=== PATIENT | male | born 1950 | race Two or more races ===

== ENCOUNTER 2023-09-22 13:23 | Outpatient (OUT) | payer MEDICARE, OTHER, SELFPAY ==
--- NOTE | 2023-09-22 13:27 | MR_ITS ---
[place] [id number] Patient Name: RASHMI BRANDT MRN: [id number]:[id number] date: 1950 Sex: M Assigned Patient Location: MRI Current Patient Location: Accession/Order Number: [id number] Exam Date: 09/22/2023 13:40 Report Date: 09/23/2023 01:04 At the request of: KIMBERLEE SOARES Procedure: MR lumbar spine wo con INDICATION: 72 years old; Male . Symptom/Location/Duration: Right Lumbar Pain TECHNIQUE: Multiplanar MR imaging of the lumbar spine was performed. IV contrast: None. Comparison: Images from a CT abdomen dated 10/03/2020. FINDINGS: POSTOPERATIVE CHANGES: None. ALIGNMENT: Loss of normal lumbar lordosis. Scoliosis concave to the left with a rotational component. COMPRESSION FRACTURES: No fracture or vertebral body collapse is seen. No bone destruction is seen. No bone marrow edema is present. PREVERTEBRAL SOFT TISSUES: Normal. SPINAL CORD: Line for scoliosis, there is cord impingement present at the level of T10-T11. Subtle hyperintensity is seen within the cord as noted on images 1011/series 7001. Consider dedicated thoracic examination. Disc levels: T12-L1: Disc degeneration. Disc space narrowing. Disc bulging and endplate osteophyte formation with facet degeneration. There is a central disc osteophyte complex. Mild central canal stenosis is seen. There is flattening of the anterior aspect of the thecal sac. Neural foramina are patent. There is effacement of CSF space anterior to the distal conus. L1-L2: Disc degeneration. Disc space narrowing, disc bulging, endplate osteophyte formation, vertebral endplate degeneration, endplate osteophyte formation, with rotational deformity associated with scoliosis. Small synovial cyst on the right. Mild central canal stenosis. Mild left and severe right-sided foraminal stenosis. L2-L3: Disc degeneration. Disc space narrowing. Disc bulging and endplate osteophyte formation with vertebral endplate degeneration. Facet degeneration. Rotational deformity associated with scoliosis. There is moderate left and severe right-sided foraminal stenosis. L3-L4: Disc degeneration. Disc space narrowing with vertebral endplate degeneration, endplate osteophyte formation, and facet degeneration with bony overgrowth. There is severe central canal stenosis with severe circumferential compression of the thecal sac associated with effacement of CSF space surrounding the nerve roots and compression of the nerve roots within the sac. Severe bilateral foraminal stenosis is present. L4-L5: Disc space narrowing, disc bulging, endplate osteophyte formation, vertebral endplate degeneration, and facet degeneration is seen. There is severe left and moderate to severe right-sided foraminal stenosis. L5-S1: Disc degeneration. Disc space narrowing. Disc bulging and endplate osteophyte formation with facet degeneration. A superimposed right, lateral, intraforaminal extrusion type disc herniation is seen compressing the exiting left L5 nerve root. LOWER THORACIC SPINE: Disc degeneration with disc space narrowing, disc bulging, endplate osteophyte formation, annular fissure formation, and facet degeneration at T10-T11 with central canal stenosis associated with cord deformity as described above. Disc degeneration is seen with anterior osteophytes at T11-T12. OTHER: Posterior paraspinal muscle atrophy. Psoas muscle intact. MR/MR lumbar spine wo con IMPRESSION: 1. Diffuse degenerative changes throughout the lower thoracic and lumbar spine as described in the body of this report. There is multilevel central canal and foraminal stenosis. Please see the detailed discussion of the individual levels in the body of this report. 2. Degenerative change at T10-T11 with central canal stenosis associated with cord deformity and subtle abnormal signal within the cord. Recommend dedicated thoracic study. Electronically authenticated by: NIDHI ALAN Date: 09/23/2023 01:04
== END 2023-09-22 13:24 | disposition home or self-care (01) ==
LOC: MRI 13:23
PROVIDERS: PCP Internal Medicine; Visit Provider Internal Medicine
DX: M54.16 Radiculopathy, lumbar region (principal); M51.36 Other intervertebral disc degeneration, lumbar region
CPT/HCPCS: 72148

== ENCOUNTER 2023-10-14 12:20 | Outpatient (OUT) | payer MEDICARE, OTHER, SELFPAY ==
--- NOTE | 2023-10-14 | CONS_ITS ---
CONSULTATION DATE: 10/14/2023 TO: Dr. Ingram CHIEF COMPLAINT: Includes severe lower back pain, right leg pain, right foot pain. HISTORY OF PRESENT ILLNESS: Review of systems, past medical/surgical history were obtained and documented on the health questionnaire and is available upon request. He is a 72-year-old male who reports having had pain since July of 2023. It occurred spontaneously and increased gradually to its present state. He now complains of 1-7/10 pain in his right foot area, described as deep aching/throbbing pain, increased with activities such as standing, walking and performing transitioning maneuvers. He feels most comfortable in the semi- recumbent position. Denies any change in bowel and bladder habits or new sensorimotor changes in the lower extremities. EXAMINATION: Notable for patient having hypoesthesia along the right L4 and L5 dermatome with decreased EHL and anterior tibialis, depressed right Achilles reflex and patellar reflex. Straight leg raise is equivocally positive at approximately 90 degrees. He had no signs consistent with myelopathy involving his lower extremities. His REBECCA was 18% on today?s visit. IMPRESSION: Our impression is patient appears to have chronic pain secondary to right L4-L5 radiculopathy. RECOMMENDATIONS: I have recommended he consider trialing Zonegran 50 mg, one at h.s.; baclofen 10 mg, 1-2 at h.s. He has been using nonsteroidal agents since at least July of 2023 in for the form of Aleve with only marginal relief. He has also been in a supervised exercise program. Our recommendation is that patient consider starting aquatic therapy. I have placed him on Zonegran 50 mg at h.s. to be increased to 100 mg at h.s. after approximately seven days. I have placed him on baclofen 10 mg, half a pill to one pill at h.s. as well and to proceed with an L5-S1 lumbar epidural steroid injection under fluoroscopic guidance. As part of providing excellent, safe, comprehensive care, the following was completed at our patient's visit: 1. A medication reconciliation and review to ensure accurate knowledge of current/active medications, including asking our patients to inform us about any [id number] medications or herbal remedies/nutritional supplements/alternative remedies. 2. A review to specifically ensure our patients have had annual screening for: elevated body mass index (BMI, see intake chart for exact total), tobacco use, screening for depression, and screening for unhealthy alcohol use. When screening is concerning, patients are provided with education and the specific recommendation to discuss the concerning health issue and treatment options with their primary care provider. KAVITA
--- OUTSIDE RECORDS SUMMARY | 2023-10-14 12:23 | XMS_ITS | CCD ---
Author Name Unknown Address [address] [facility] [address] [place] [id number] Organization [facility] Care Team Providers Care Fire Sprinkler Installer Name Role Phone NIDHI RICKS Admitting Unavailable NIDHI RICKS Attending Unavailable KAUSHAL SOARES Primary Care Unavailable JONES HIGGINS V Consulting Unavailable NIDHI RICKS Consulting Unavailable MAXIMUS VAIL Referring Unavailable Kaushal Soares DO Primary Care Provider MAXIMUS VAIL Admitting Unavailable MAXIMUS VAIL Attending Unavailable KAUSHAL SOARES Primary Care Unavailable KAELYN COLEMAN Referring Unavailable KAELYN COLEMAN Attending Unavailable Medications Current Medications Medication Drug Class(es) Dates Sig (Normalized) Sig (Original) amLODIPine 10 mg oral tablet (1 source) Dihydropyridine Calcium Channel Savita Start: 08-05-2022 take 1 tablet by mouth once daily amLODIPine (NORVASC) 10 MG tablet Take 10 mg by mouth daily 0 08/05/2022 Active amoxicillin 500 mg oral tablet (1 source) Penicillin-class Antibacterial Start: 07-30-2022 take 4 tablets by mouth once Amoxicillin 500 MG TABS Take 500 mg by mouth 1 (one) time if needed Take 4 tablets by mouth once hour before procedure 0 07/30/2022 Active aspirin 81 mg delayed release oral tablet (1 source) Platelet Aggregation Inhibitor, Nonsteroidal Anti-inflammatory Drug Start: 09-26-2021 take 1 tablet by mouth once daily aspirin 81 MG EC tablet Take 81 mg by mouth daily 0 09/26/2021 Active calcium chloride 0.0014 meq/ml / potassium chloride 0.004 meq/ml / sodium chloride 0.103 meq/ml / sodium lactate 0.028 meq/ml injectable solution (1 source) Start: 08-12-2022 lactated ringers infusion cholecalciferol 0.025 mg oral tablet (1 source) Vitamin D take 1 tablet by mouth once daily vitamin D (CHOLECALCIFEROL) 25 MCG (1000 UT) TABS tablet Take 1 tablet by mouth daily 0 Active 2 ml fentaNYL 0.05 mg/ml injection (1 source) Opioid Agonist Start: 08-12-2022 fentaNYL (SUBLIMAZE) injection 25 mcg 0.5 ml HYDROmorphone hydrochloride 1 mg/ml prefilled syringe (1 source) Opioid Agonist Start: 08-12-2022 HYDROmorphone HCl PF (DILAUDID) injection 0.5 mg irbesartan 300 mg oral tablet (1 source) Angiotensin 2 Receptor Savita Start: 08-02-2022 take 1 tablet by mouth once daily irbesartan (AVAPRO) 300 MG tablet Take 300 mg by mouth daily 0 08/02/2022 Active 10 ml lidocaine hydrochloride 10 mg/ml injection (1 source) Antiarrhythmic, Amide Local Anesthetic Start: 08-12-2022 End: 08-13-2022 lidocaine PF 1 % injection 1 mL 2 ml ondansetron 2 mg/ml injection (1 source) Serotonin-3 Receptor Antagonist Start: 08-12-2022 End: 08-13-2022 ondansetron (ZOFRAN) injection 4 mg oxyCODONE hydrochloride 5 mg oral tablet (1 source) Opioid Agonist Start: 08-12-2022 End: 08-13-2022 oxyCODONE (ROXICODONE) immediate release tablet 5 mg microencapsulated potassium chloride 10 meq extended release oral tablet (1 source) Start: 08-02-2022 KLOR-CON M10 10 MEQ extended release tablet Take 10 mEq by mouth daily 0 08/02/2022 Active 5 ml sodium chloride 9 mg/ml injection (5 sources) Start: 08-12-2022 0.9 % sodium chloride infusion Start: 08-12-2022 sodium chlorid e flush 0.9 % injection 5-40 mL Completed/Discontinued Medications Medication Drug Class(es) Dates Sig (Normalized) Sig (Original) gentamicin (GARAMYCIN) 300 mg in dextrose 5 % 100 mL IVPB (1 source) Start: 08-12-2022 End: 08-12-2022 gentamicin (GARAMYCIN) 300 mg in dextrose 5 % 100 mL IVPB Problems Problem Classification Problem Date Documented Da te Episodic/Chronic Abdominal pain (5 sources) Epigastric pain; Translations: [Periumbilical pain] Onset: 10-03-2020 Episodic Other screening for suspected conditions (not mental disorders or infectious disease) (4 sources) Abnormal findings on diagnostic imaging of liver and biliary tract; Translations: [Elevated prostate specific antigen [PSA]] Onset: 10-11-2020 Episodic Results Test Name Value Interpretation Reference Range Mahsa haley Surgical Pathologyon Surgical Pathology (NOTE) -- Diagnosis -- A. PROSTATE, AREA OF INTEREST, NEEDLE CORE BIOPSY: BENIGN PROSTATE. B. PROSTATE, RIGHT BASE LATERAL, NEEDLE CORE BIOPSY: BENIGN PROSTATE. C. PROSTATE, RIGHT BASE MEDIAL, NEEDLE CORE BIOPSY: BENIGN PROSTATE. D. PROSTATE, RIGHT MID LATERAL, NEEDLE CORE BIOPSY: BENIGN PROSTATE. E. PROSTATE, RIGHT MID MEDIAL, NEEDLE CORE BIOPSY: BENIGN PROSTATE. F. PROSTATE, RIGHT APEX LATERAL, NEEDLE CORE BIOPSY: BENIGN PROSTATE. G. PROSTATE, RIGHT APEX MEDIAL, NEEDLE CORE BIOPSY: BENIGN PROSTATE. H. PROSTATE, LEFT BASE LATERAL, NEEDLE CORE BIOPSY: BENIGN PROSTATE. I. PROSTATE, LEFT BASE MEDIAL, NEEDLE CORE BIOPSY: BENIGN PROSTATE. J. PROSTATE, LEFT MID LATERAL, NEEDLE CORE BIOPSY: BENIGN PROSTATE. K. PROSTATE, LEFT MID MEDIAL, NEEDLE CORE BIOPSY: BENIGN PROSTATE. L. PROSTATE, LEFT APEX LATERAL, NEEDLE CORE BIOPSY: BENIGN PROSTATE. M. PROSTATE, LEFT APEX MEDIAL, NEEDLE CORE BIOPSY: BENIGN PROSTATE. Ray Alcala M.D. Electronically Signed Out rdd08/14/2022 Clinical Information Pre-op Diagnosis: ELEVATED PSA Operative Findings: PROSTATE BIOPSIES Operation Performed: FUSION PROSTATE BIOPSY WITH ULTRASOUND Source of Specimen A: AREA OF INTEREST B: RIGHT BASE LATERAL C: RIGHT BASE MEDIAL D: RIGHT MID LATERAL E: RIGHT MID MEDIAL F: RIGHT APEX LATERAL G: RIGHT APEX MEDIAL H: LEFT BASE LATERAL I: LEFT BASE MEDIAL J: LEFT MID LATERAL K: LEFT MID MEDIAL L: LEFT APEX LATERAL M: LEFT APEX MEDIAL Gross Description ARMANDO CHICAS, PROSTATE BIOPSIES All specimens are received on sponges and are gaona-white needle core biopsies less than < 0.1 cm in diameter with the following lengths: A. AREA OF INTEREST Five cores, 0.7, 1.2, 1.4, 1.0 and 0.9 cm in length. Entirely 3cs. B. RIGHT BASE LATERAL One core, 1.6 cm in length. Entirely 1cs. C. RIGHT BASE MEDIAL One core, 1.5 cm in length. Entirely 1cs. D. RIGHT MID LATERAL One core, 1.2 cm in length. Entirely 1cs. E. RIGHT MID MEDIAL One core, 1.5 cm in length. Entirely 1cs. F. RIGHT APEX LATERAL One core, 0.6 cm in length. Entirely 1cs. G. RIGHT APEX MEDIAL One core, 0.7 cm in length. Entirely 1cs. H. LEFT BASE LATERAL One core, 1.3 cm in length. Entirely 1cs. I. LEFT BASE MEDIAL One core, 1.5 cm in length. Entirely 1cs. J. LEFT MID LATERAL One core, 1.3 cm in length. Entirely 1cs. K. LEFT MID MEDIAL One core, 1.5 cm in length. Entirely 1cs. L. LEFT APEX LATERAL One core, 1.5 cm in length. Entirely 1cs. M. LEFT APEX MEDIAL One core, 1.4 cm in length. Entirely 1cs. mm tm Microscopic Description A-M. Microscopic examination performed. E. Right mid medial prostate biopsy. The prostate biopsy shows a focal area with irregularly spaced small glands. To further characterize this focus, triple immunohistochemical staining (*P504S/racemase, CK-HMW, P63 with appropriate control) is performed. P504/racemase is negative. CK-HMW and P63 (nuclear) show positive staining in intact and normal basilar cells in the glands in question. The stain profile is a benign pattern. *This test was developed, and its performance characteristics determined by [facility] Path[facility]. It has not been cleared or approved by the U.S. Food and Drug Administration. The FDA has determined that such clearance or approval is not necessary. This test is used for clinical purposes. It should not be regarded as investigational or for research. This laboratory is certified under the Clinical Laboratory Improvement Amendments of 1988 (CLIA) as qualified to perform high complexity clinical laboratory testing. SURGICAL PATHOLOGY CONSULTATION Patient Name: ARMANDO CHICAS [facility] Rec: [id number] Path Number: [id number] [facility] ANATOMIC PATHOLOG[facility] [address] [place] [id number] Normal [facility] Comment on above: Performed By: #### P PPVS #### [address] [address] Senior Policy Advisor: Humberto Rosa MD MRI PROSTATE W WO CONTRASTon 07-17-2022 MRI PROSTATE W WO CONTRAST EXAMINATION: MULTIPARAMETRIC MRI OF THE PROSTATE WITH AND WITHOUT CONTRAST 07/17/2022: TECHNIQUE: Multiparametric imaging with dynamic contrast enhanced imaging and diffusion weighted imaging was performed. [facility] was utilized in analysis of images. COMPARISON: None. HISTORY: ORDERING SYSTEM PROVIDED HISTORY: Elevated prostate specific antigen (PSA) TECHNOLOGIST PROVIDED HISTORY: STAT Creatinine as needed:->No Reason for Exam: Elevated prostate specific antigen FINDINGS: PROSTATE: cm x cm x cm (estimated volume ml). TRANSITION ZONE: *Index lesion Size: 1.1 cm x 0.6 cm x 0.7 cm Location: Right anterior transition zone, mid gland at 11 o'clock -T2: 4.Lenticular or non circumscribed, homogeneous moderately hypointense lesion that is less than 1.5 cm in greatest dimension. (Series 7, image 19) -Diffusion: 4. Focal markedly hypointense on ADC and markedly hyperintense at high B value DWI, less than 1.5 cm in greatest dimension. (Series 400, image 21) PI-RADS score: T2-weighted score 4, diffusion-weighted score 4, dynamic contrast-enhanced score -, overall score 4 Extraprostatic extension: No evidence for. PERIPHERAL ZONE: Mildly heterogeneous T2 signal without focal lesion identified. No restricted diffusion or abnormal enhancement. SEMINAL VESICLES: Normal. NEUROVASCULAR BUNDLE: Normal. LYMPHADENOPATHY: No pelvic nor inguinal lymphadenopathy. BLADDER: Normal. BOWEL: Normal course and caliber of the included small bowel and colon and of the rectum without obstruction. PERITONEAL CAVITY: No free intraperitoneal fluid. SOFT TISSUES/BONES: No focal signal abnormality identified. Degenerative disc disease in the lower lumbar spine and partially visualized buckling of the nerve roots, presumably due to central canal encroachment at the L3-4 level. IMPRESSION: 1.1 cm PI-RADS 4 lesion anterior right transition zone, mid gland. Interpreted by: Neo Ayala MD Signed by: Neo Ayala MD 07/17/22 Final result Normal [facility] US Venous, Unilat, Lower Ext Righton 10-09-2021 US Venous, Unilat, Lower Ext Right HISTORY: Calf pain FINDINGS: The deep venous system of the right lower extremity exhibits full compressibility and normal flow augmentation. These specifically include the common femoral, superficial femoral, popliteal and visualization anterior tibialis, posterior tibialis and peroneal veins. No evidence of deep venous thrombosis is present. Greater saphenous vein is patent. No cystic or soft tissue mass in the popliteal fossa. IMPRESSION: No evidence of deep or superficial venous thrombosis. Report reported and signed by Luis E Thomson on 10/09/2021 1652 Normal [facility] RAD - Ultrasound Reporton RAD - Ultrasound Report [id number] .00CD:127 Normal [facility] Lab Reportson 10-04-2020 Lab Reports [id number] .00CD:127 Normal [facility] CREATININEon 10-03-2020 Creatinine [Mass/Vol] 1.29 mg/dL Critically high 0.66-1.25 [facility] Comment on above: Performed By: #### C IAN #### [facility] [address] [place] [address] Everardo Nidia Creatinine [Mass/Vol] 55 mL/min/1.73m2 Critically low >=60 [facility] Comment on above: Performed By: #### C IAN #### [facility] [address] [place] [address] Everardolynda Coreasen Creatinine [Mass/Vol] mg/dL Normal >=60 [facility] Comment on above: Performed By: #### C IAN #### [facility] [address] [place], [place] [id number] Everardo Nidia CT ABDOMEN W CONon 0 CT ABDOMEN W CON EXAMINATION: CT ABDOMEN W CON HISTORY: Epigastric pain right upper quadrant pain COMPARISON: No relevant comparison available. TECHNIQUE: CT images were created with IV contrast. Axial, Coronal, and Sagittal images. Dose reduction techniques were achieved by using automated exposure control and/or adjustment of mA and/or kV according to patient size and/or use of iterative reconstruction technique. FINDINGS: LUNG BASES: No visible pulmonary or pleural disease. Extensive coronary atherosclerosis LIVER: No enlargement, atrophy, abnormal density, or significant focal lesion. BILIARY: No visible dilatation or calcification. PANCREAS: No lesion, fluid collection, ductal dilatation, or atrophy. SPLEEN: No enlargement or focal lesion. ADRENALS: No mass or enlargement. KIDNEYS: Normal right kidney. 1.1 cm left renal cortical cystic lesion measuring 35 Hounsfield units. A complex or hyperdense cyst is favored. No hydronephrosis or obstructing nephrolithiasis. BOWEL/MESENTERY: No visible mass, obstruction, or bowel wall thickening. AORTA/VASCULAR: No aneurysm or dissection. ABDOMINAL WALL: No mass or hernia. BONES: No bony lesion or fracture. Dextrocurvature with underlying spondylosis and facet osteoarthritis OTHER: Negative. IMPRESSION: No acute abnormality Electronically authenticated by: JONES HIGGINS Date: 2020-10-03 10:40 Normal [facility] RAD - CT Reporton 10-03-[address] - CT Report [id number] .00CD:127 Normal [facility] Facesheeton 09-27-2020 Facesheet [id number]:127 Normal [facility] Provider Letter FTon 09-27 Provider Letter [facility] KAUSHAL SOARES JR [address] [place] [address] Re: ARMANDO CHICAS Date of : 1950 Thank you for your referral of Armando Chicas who was seen on consultation of stomach pain and nausea and decreased appetite. Testing was ordered for further evaluation. I have enclosed my consultation notes for your review and will be happy to follow Armando if his symptoms should persist. Sincerely, Nidhi Ricks MD General Surgery Normal [facility] Ambulatory Clinical Summaryo n 09-26-2020 Ambulatory Clinical Summary {[id number]}CD:[id number] Normal [facility] General Surgery Office/Clini c Noteon 09-26-2020 General Surgery Office/Clinic Note Chief Complaint referral for stomach pain and nausea HPI Staff 69 year old male presents on consultation from Dr. Soares for central stomach pain and nausea. Present for roughly 2-3 weeks. Pain resolved after large bowel movement and has not returned. Denies vomiting or diarrhea. GB US with stone, sludge, gravel and calcified GB wall. History of Present Illness 69 yo male with h/o htn, several month h/o intermittent abdominal pain; upper and mid abdomen; describes as ache; some associated nausea and decreased appetite; mild wt loss; was diagnosed with GERD, some improvement after avoiding acidic and spicy foods; had 2 episodes after eating ugandan fries; pain lasted for several hours; recent episode was though due to constipation; had improvement with laxatives; had US in Dr Soares's office, found to have stones/sludge and calcification of GB wall; no h/o jaundice or pancreatitis; no previous abdominal operations; on baby asa daily, no NSAIDs; no fmhx of GI malignancy or IBD. Review of Systems PHQ Score Initial Depression Screen Score: 0 ROS - Provider Constitutional: no fever, no sweats, no weight loss. Eyes: no glasses, no blurred vision, no visual loss. ENMT: no dentures, no hoarseness, no swallowing difficulties, no hearing loss, no ear infection(s), no nose bleeds. Cardiovascular: high blood pressure, no chest pain, regular heartbeat, no heart murmur. Respiratory: no shortness of breath, no cough, no asthma, no wheezing. Gastrointestinal: no nausea, no vomiting, no diarrhea, yes constipation, no blood in stool, no change in bowel habits, mild abdominal pain, no hepatitis. Genitourinary: no kidney stones, no urine infection, no dysuria. Musculoskeletal: no pain, no weakness. Skin: no changing moles, no rash, no skin lumps. Neurologic: no seizures, no epilepsy, no headache. Psychiatric: no emotional or psychiatric problem. Heme/Lymph: no bleeding problems, no anemia, no blood clots, no transfusions. Allergy/Immunologic: no swollen lymph nodes/glands, no IV drug abuse. Other: Additional ROS info: Except as noted in the above Review of Systems and in the History of Present Illness, all other systems have been reviewed and are negative or noncontributory. Physical Exam Vitals & Measurements T: 36.7 ?C (Tympanic) HR: 80(Peripheral) RR: 16 BP: 138/60 HT: 157.48 cm HT: 157.5 cm WT: 67.5 kg WT: 67.5 kg BMI: 27.22 HEENT: normal conjunctiva, sclera clear, no scleral icterus, EOM intact, PERRLA, oral mucosa moist without lesions. Neck: trachea midline, no mass, symmetric, no thyromegaly or nodules, no adenopathy Respiratory: lungs CTA, respirations non labored. Cardiovascular: regular rate and rhythm, no murmur, no pedal edema or varicosities. Gastrointestinal: soft, non distended, no tenderness, no masses, no palpable hernias, diastasis recti no, no hepatosplenomegaly; normal bs Lymphatic: no cervical adenopathy, no axillary adenopathy, Musculoskeletal: normal gait, digits and nails without infection, nodes, cyanosis, clubbing. Skin: no rashes, no lesions, no ulcers, no subcutaneous nodules, induration. Psychiatric/Neuro: oriented to time, place, person, judgement normal, affect appropriate for age, insight intact, no focal deficits. Tests: review of old records completed, Assessment/Plan 1. Abnormal gallbladder ultrasound (R93.2: Abnormal findings on diagnostic imaging of liver and biliary tract) plan abdominal ct for further evaluation of gallbladder and abdominal pain; will call patient with results. Ordered: CT Abdomen w/ Contrast 2. Abdominal pain, epigastric (R10.13: Epigastric pain) see # 1 Ordered: CT Abdomen w/ Contrast 3. Abdominal pain, periumbilical (R10.33: Periumbilical pain) see # 1 Ordered: CT Abdomen w/ Contrast Orders: Most recent diastolic blood pressure <80 mm Hg 3078F Systolic BP 130-139 mm Hg (Most Recent) 3075F Follow-up With When Contact Information GRANT CHAPMAN, Nidhi Kohli Only if needed [address] [place] [address]- Additional Instructions: Patient Education Exercise to Lose Weight, Vokn-cj-Agms Problem List/Past Medical History Ongoing Abdominal pain, epigastric Abdominal pain, periumbilical Abnormal gallbladder ultrasound Cholelithiasis Cyst of prostate Fatty liver HTN (hypertension) Osteoarthritis, knee Historical No qualifying data Procedure/Surgical History Colonoscopy (12/22/2018), Vasectomy (10/06/1993). Medications aspirin 81 mg Oral EC Tab, 81 mg= 1 tab(s), Oral, Daily Avapro 300 mg Tab, 300 mg= 1 tab(s), Oral, Daily Klor Con 10 mEq Cap-ER, 10 mEq= 1 tab(s), Oral, Daily Norvasc 10 mg Tab, 10 mg= 1 tab(s), Oral, Daily Pepcid 40 mg Tab, 40 mg= 1 tab(s), Oral, Bedtime Vitamin D 1000 intl units Tab, 3000 International_Unit= 3 tab(s), Oral, Daily Allergies No Known Allergies No Known Medication Allergies Social History Alcohol - Denies Alcohol Use, 09/26/2020 Substance Abuse - Denies Substance Abuse, 09/26/2020 Tobacco Never (less than 100 in lifetime) Tobacco Use:., 09/26/2020 Family History Primary malignant neoplasm of prostate: Brother. Normal Juan [facility] Comment on above: Result Comment: Elec tronically Signed By: GRANT CHAPMAN, Nidhi Rossi.chucky\Date and Time Signed: 09/26/20 16:34 EST Patient Educationon 09-26-20 Patient Education Exercise to Lose Weight Exercise and a healthy diet may help you lose weight. Your doctor may suggest specific exercises. EXERCISE IDEAS AND TIPS ? Choose low-cost things you enjoy doing, such as walking, bicycling, or exercising to workout videos. ? Take stairs instead of the elevator. ? Walk during your lunch break. ? Park your car further away from work or school. ? Go to a gym or an exercise class. ? Start with 5 to 10 minutes of exercise each day. Build up to 30 minutes of exercise 4 to 6 days a week. ? Wear shoes with good support and comfortable clothes. ? Stretch before and after working out. ? Work out until you breathe harder and your heart beats faster. ? Drink extra water when you exercise. ? Do not do so much that you hurt yourself, feel dizzy, or get very short of breath. Exercises that burn about 150 calories: ? Running 1 ? miles in 15 minutes. ? Playing volleyball for 45 to 60 minutes. ? Washing and waxing a car for 45 to 60 minutes. ? Playing touch football for 45 minutes. ? Walking 1 ? miles in 35 minutes. ? Pushing a stroller 1 ? miles in 30 minutes. ? Playing basketball for 30 minutes. ? Raking leaves for 30 minutes. ? Bicycling 5 miles in 30 minutes. ? Walking 2 miles in 30 minutes. ? Dancing for 30 minutes. ? Shoveling snow for 15 minutes. ? Swimming laps for 20 minutes. ? Walking up stairs for 15 minutes. ? Bicycling 4 miles in 15 minutes. ? Gardening for 30 to 45 minutes. ? Jumping rope for 15 minutes. ? Washing windows or floors for 45 to 60 minutes. Document Released: 10/25/2011 Document Revised: 12/14/2012 Document Reviewed: 10/25/2011 ExitCare? Patient Information ?2013 [employer]. [facility] Physician Referralon 020 Physician Referral [id number] .[id number]:127 Normal [facility] Vital Signs Date Time Vital Sign Value Performing Clinician Faci lity 08-12-2022 12:15-0500 Body temperature 97.3 [degF] Maximus Vail MD [facility] 08-12-2022 12:00-0500 Diastolic blood pressure 70 mm[Hg] Maximus Vail MD Work Phone: [facility] 08-12-2022 12:00-0500 Heart rate 70 /min Maximus Vail MD Work Phone: [facility] 08-12-2022 12:00-0500 Respiratory rate 21 /min Maximus Vail MD Work Phone: [facility] 08-12-2022 12:00-0500 SaO2% (BldA) [Mass fraction] 98 % Maximus Vail MD Work Phone: [facility] 08-12-2022 12:00-0500 Systolic blood pressure 135 mm[Hg] Maximus Vail MD Work Phone: [facility] [employer] 08-12-2022 08:36-0500 Body height 157.5 cm Maximus Vail MD Work Phone: [facility] [employer] 08-12-2022 08:36-0500 Body mass index (BMI) [Ratio] 27.62 kg/m2 Maximus Vail MD Work Phone: [facility] [employer] 08-12-2022 08:36-0500 Body weight 68.49 kg Maximus Vail MD Work Phone: [facility] Encounters Encounter Date Encounter Type Care Provider Facility Start: 09-17-2023 End: 09-18-2023 ambulatory KAELYN COLEMAN Not Available Start: 08-12-2022 End: 08-12-2022 ambulatory [facility] Start: 08-12-2022 End: 08-12-2022 Subsequent hospital visit by physician Maximus Vail MD Work Phone: [facility] Comment on above: Elevated PSA Start: 07-17-2022 ambulatory [facility] Start: 10-03-2020 End: 10-04-2020 Patient encounter procedure NIDHI RICKS Facility:[facility] Plan of Treatment Date Care Activity Detail Author Start: 08-12-2022 End: 08-12-2022 Biopsy prostate incisional any approach PROSTATE BIOPSY Elevated PSA 08/12/2022 11:00 AM [facility] Start: 07-16-2022 Annual Wellness Visi t (AWV) Annual Wellness Visit (AWV) [facility] Start: 05-06-2022 Influenza vaccination Flu vaccine (# 1) [facility] Start: 1998 Shingles vaccine (1 of 2) Shingles vaccine (1 of 2) [facility] Start: 1993 Screening for malign ant neoplasm of colon [facility] Start: 1988 Lipid panel Lipids [facility] Start: 1967 DTaP/Tdap/Td vaccine (1 - Tdap) DTaP/Tdap/Td vaccine (1 - Tdap) [facility] Start: 1966 Hepatitis C screening Hepatitis C sc reen [facility] Start: 1960 Depression Screen Depression Screen [facility] Start: [birth year]-25-1951 COVID-19 Vaccine (#1) COVID-19 Vacci ne (#1) [facility] End: 08-12-2022 INITIATE PACU OXYGEN THERAPY PROTOCOL Initiate PACU Oxygen Therapy Protocol Respiratory Care Routine Continuous until discontinued starting 08/12/2022 [employer] Phone: Comment on above: Continuous until dis continued starting 08/12/2022 Oxygen therapy [[facility] Data Set] Initiate Oxygen Therapy Protocol Respiratory Care Routine Daily until discontinued starting 08/12/2022 [employer] Phone: Comment on above: Daily until disconti nued starting 08/12/2022 Surgical Pathology Surgical Path ology Lab Routine Elevated PSA Release Upon Ordering for 1 Occurrences starting 08/12/2022 [employer] Phone: Comment on above: Release Upon Orderin g for 1 Occurrences starting 08/12/2022 Payers Date Payer Category Payer Private Health Insurance CLI [id number] 2018 Unknown [id number] 1959 Medicare [id number] 1959 Unknown [id number] 1950 Unknown [id number] 1950 Unknown [id number] 2.16.8 [id number] 1948 Unknown [id number] 2.16.8 [id number] 1948 Unknown [id number] 1948 Unknown [id number] Social History Date Type Detail Facility Start: 08-12-2022 [facility] [employer] Start: 08-12-2022 Tobacco use and exposure Smokeless tobacco non-user [employer] Phone: Start: 08-12-2022 Alcohol intake Ex-drinker (finding) [employer] Phone: Start: 1950 Sex Assigned At Not on file B ON [employer] Phone: Start: 08-02-2022 End: 08-12-2022 Exposure to SARS-CoV-2 (event) Not sure MAGDI [employer] Phone: Hospital Discharge instructions 08-12-2022 Discharge InstructionsAttachments Note Date & Type Note Facility 08-12-2022 Hospital Discharg e instructions Maximus Vail MD - 08/12/2022 11:23 AM EST Regular diet. Resume all home medications. No activity restrictions. Dr. Maximus Vail MD The following attachments cannot be sent through Care Everywhere.Prostate Biopsy (Italian)documented in this encounter [employer] Phone: Evaluation note Note Date & Type Note Facility Evaluation note Diagnosis Elevated PSA Elevated prostate specific antigen (PSA) documented in this encounter [facility] [employer] Phone: Summary Purpose Family History No Family History Records FoundNo Family History Records FoundNo Family History Records FoundNo Family History Records FoundNo Family History Records FoundNo Family History Records Found Advance Directives No Advanced Directives Records FoundNo Advanced Directives Records FoundNo Advanced Directives Records FoundNo Advanced Directives Records FoundNo Advanced Directives Records FoundNo Advanced Directives Records Found Additional Source Comments (unrecognized sect ion and content) No Status Records FoundNo Status Records FoundNo Status Records FoundNo Status Records FoundNo Status Records FoundNo Status Records Found INFORMATION SOURCE (unrecogn ized section and content) DATE CREATED AUTHOR 10/11/2020 [facility] DATE CREATED AUTHOR AUTHOR'S ORGANIZ ATION 10/12/2020 [facility] DATE CREATED AUTHOR AUTHOR'S ORGANIZ ATION 10/10/2021 [facility] dical Specialist DATE CREATED AUTHOR AUTHOR'S ORGANIZ ATION 07/17/2022 [facility] DATE CREATED AUTHOR AUTHOR'S ORGANIZ ATION 08/17/2022 [facility] DATE CREATED AUTHOR AUTHOR'S ORGANIZ ATION 09/22/2023 [facility] dical Specialists EPIC Reason for Visit (unrecogniz ed section and content) Specialty Diagnoses / Procedures Referred By Negin diaz Referred To Contact Diagnoses Elevated PSA Elevated PSA [R97.20] Procedures NE BIOPSY OF PROSTATE,INCISIONAL NE BIOPSY OF PROSTATE,NEEDLE/PUNCH FUSION PROSTATE BIOPSY WITH ULTRASOUND - [facility] [address] [facility] [address] [place] [address] [facility] [address] [place] [address] Referral ID Status Reason Start Date Expiration Date Visits Re quested Visits Authorized [id number] 1 1 Scheduled Active and Recently Administ ered Medications (unrecognized section and content) Medication Order 08/10/2022 08/11/2022 08/12/2022 ceFAZolin (ANCEF) 2000 mg in dextrose 5 % 50 mL IVPB (COMPLETED) 2,000 mg, IntraVENous, ONCE, 1 dose, On Fri08/12/22 at 0915, Antimicrobial Indications: Surgical Prophylaxis, Pre-op (day of surgery), STAT 1104 (Given - Provid er: Trixie Singleton APRN - PLANT TAXONOMIST) gentamicin (GARAMYCIN) 300 mg in dextrose 5 % 100 mL IVPB (COMPLETED) 300 mg, IntraVENous, at 100 mL/hr, Administer over 60 Minutes, ONCE, On Fri08/12/22 at 0915, For 1 dose, 5mg/kg x dbw, Pre-op (day of surgery), STAT 0916 (New Bag - Prov ider: Mickey Gonzales, RN)1016 (Stopped - Provider: Mickey Gonzales RN) sodium chloride flush 0.9 % injection 5-40 mL 5-40 mL, IntraVENous, EVERY 12 HOURS SCHEDULED (2 times per day), First dose on Fri08/12/22 at 0915, Until Discontinued, For Line Patency: Peripheral IV = 5 mL; Midline or Central Line = 10 mL/lumen. If following IV push medication, administer flush at same rate as the IV push. Flush volume is determined by type of infusion therapy being given. For non-viscous solutions use: Peripheral IV = 5 mL Midline or Central Line = 10 mL/lumen For viscous solutions (i.e. blood components, parenteral nutrition, contrast media, or after obtaining blood sample) use: Peripheral IV = 10 mL Midline or Central Line = 20 mL/lumen, Pre-op (day of surgery) 0915 (Due)2100 (Due) sodium chloride flush 0.9 % injection 5-40 mL 5-40 mL, IntraVENous, EVERY 12 HOURS SCHEDULED (2 times per day), First dose on Fri08/12/22 at 1145, Until Discontinued, For Line Patency: Peripheral IV = 5 mL; Midline or Central Line = 10 mL/lumen. If following IV push medication, administer flush at same rate as the IV push. Flush volume is determined by type of infusion therapy being given. For non-viscous solutions use: Peripheral IV = 5 mL Midline or Central Line = 10 mL/lumen For viscous solutions (i.e. blood components, parenteral nutrition, contrast media, or after obtaining blood sample) use: Peripheral IV = 10 mL Midline or Central Line = 20 mL/lumen, PACU only 1145 (Due)2100 (Due) Continuous Medication Order 08/10/2022 08/11/2022 08/12/2022 lactated ringers infusion IntraVENous, at 125 mL/hr, CONTINUOUS, Starting on Fri08/12/22 at 0915, Pre-op (day of surgery) 0910 (New Bag - Prov ider: Mickey Gonzales RN)1207 (Stopped - Provider: Carrie Gupta RN) PRN Medication Order 08/10/2022 08/11/2022 08/12/2022 0.9 % sodium chloride infusion IntraVENous, at 5-250 mL/hr, PRN, if patient receiving piggyback infusions and maintenance fluids are not ordered OR KVO fluids to protect IV site / prevent frequent line interruptions/ long duration, Starting on Fri08/12/22 at 1117, For piggyback infusion, administer at same rate as piggyback for a total of 25 mL. Enter 25 mL into dose field and piggyback rate into rate field of order. If piggyback is infusing at a rate less than 100 mL/hr, enter 25 mL into dose field and 100 mL/hr into rate field of order. For KVO fluids, enter rate of 20 mL/hr or less into rate field of order., PACU only fentaNYL (SUBLIMAZE) injection 25 mcg 25 mcg, IntraVENous, EVERY 5 MIN PRN, 4 doses, Starting on Fri08/12/22 at 1117, Until Discontinued, Pain Moderate (4-6), Phase I - Initial therapy for moderate pain., PACU only HYDROmorphone HCl PF (DILAUDID) injection 0.5 mg HYDROmorphone (DILAUDID) 1.5mg IV is equivalent to morphine 10mg IV, 0.5 mg, IntraVENous, EVERY 5 MIN PRN, 4 doses, Starting on Fri08/12/22 at 1117, Until Discontinued, Pain Severe (7-10), Phase I - Initial therapy for severe pain., PACU only lidocaine PF 1 % injection 1 mL 1 mL, IntraDERmal, ONCE PRN, 1 dose, Starting on Fri08/12/22 at 0847, Until Fri08/13/22 at 0847, IV start, Pre-op (day of surgery) ondansetron (ZOFRAN) injection 4 mg 4 mg, IntraVENous, ONCE PRN, 1 dose, Starting on Fri08/12/22 at 1117, Until Fri08/13/22 at 1117, Nausea, Initial antiemetic therapy., PACU only oxyCODONE (ROXICODONE) immediate release tablet 5 mg 5 mg, Oral, ONCE PRN, 1 dose, Starting on Fri08/12/22 at 1117, Until Fri08/13/22 at 1117, Pain Moderate (4-6), Pain Severe (7-10), PHASE II, PACU only sodium chloride flush 0.9 % injection 5-40 mL 5-40 mL, IntraVENous, PRN, Starting on Fri08/12/22 at 0847, Until Discontinued, Line Care, After every IV line use, For Line Patency: Peripheral IV = 5 mL; Midline or Central Line = 10 mL/lumen. If following IV push medication, administer flush at same rate as the IV push. Flush volume is determined by type of infusion therapy being given. For non-viscous solutions use: Peripheral IV = 5 mL Midline or Central Line = 10 mL/lumen For viscous solutions (i.e. blood components, parenteral nutrition, contrast media, or after obtaining blood sample) use: Peripheral IV = 10 mL Midline or Central Line = 20 mL/lumen, Pre-op (day of surgery) sodium chloride flush 0.9 % injection 5-40 mL 5-40 mL, IntraVENous, PRN, Starting on 08/12/22 at 1117, Until Discontinued, Line Care, After every IV line use, For Line Patency: Peripheral IV = 5 mL; Midline or Central Line = 10 mL/lumen. If following IV push medication, administer flush at same rate as the IV push. Flush volume is determined by type of infusion therapy being given. For non-viscous solutions use: Peripheral IV = 5 mL Midline or Central Line = 10 mL/lumen For viscous solutions (i.e. blood components, parenteral nutrition, contrast media, or after obtaining blood sample) use: Peripheral IV = 10 mL Midline or Central Line = 20 mL/lumen, PACU only Care Teams (unrecognized sec tion and content) Fire Sprinkler Installer Relationship Specialty Start Date End Date Kaushal Soares DO [address] [place] [address] PCP - General Internal Medicine 08/12/22 FOR RECORDS PERTAINING TO PATIENTS WHO ARE OR HAVE BEEN ENROLLED IN A CHEMICAL DEPENDENCY/SUBSTANCEABUSE PROGRAM, SOME INFORMATION MAY BE OMITTED. This clinical summary was aggregated from multiple sources. Caution should be exercised in using it in the provision of clinical care. This summary normalizes information from multiple sources, and as a consequence, information in this document may materially change the coding, format and clinical context of patient data. In addition, data may be omitted in some cases. CLINICAL DECISIONS SHOULD BE BASED ON THE PRIMARY CLINICAL RECORDS. [employer] [facility]. provides no warranty or guarantee of the accuracy or completeness of information in this document.
== END 2023-10-14 12:21 | disposition home or self-care (01) ==
LOC: PM 12:21
PROVIDERS: PCP Internal Medicine; Visit Provider Anesthesiology Pain Medicine
DX: M54.50 Low back pain, unspecified (principal); M54.16 Radiculopathy, lumbar region
CPT/HCPCS: G0463

== ENCOUNTER 2023-11-11 08:25 | Day surgery (SDC) | payer MEDICARE, OTHER, SELFPAY ==
--- OUTSIDE RECORDS SUMMARY | 2023-11-11 08:29 | XMS_ITS | CCD ---
Author Name Unknown Address [address] [facility] [address] [place] [address] Organization [facility] Care Team Providers Care Lime Kiln Worker Helper Name Role Phone NIDHI RICKS Admitting Unavailable [...] developed, and its performance characteristics determined by [facility] Anatomic Pathology. It has not been [...] SURGICAL PATHOLOGY CONSULTATION Patient Name: ARMANDO CHICAS [facility] Rec: [id number] Path Number: [id number] [facility] [employer] [facility] ANATOMIC PATHOLOGY [address] [place] [id number] Normal [facility] Comment on above: Performed By: #### P PPVS #### [address] [address] Industrial Cook: Humberto Rosa MD MRI PROSTATE W WO CONTRASTon 07-17-2022 MRI PROSTATE W WO CONTRAST EXAMINATION: MULTIPARAMETRIC MRI OF THE PROSTATE WITH AND WITHOUT CONTRAST 07/17/2022: TECHNIQUE: Multiparametric imaging with dynamic contrast enhanced imaging and diffusion weighted imaging was performed. Vigiglobe was utilized in analysis of images. COMPARISON: [...] Neo Ayala MD 07/17/22 Final result Normal [facility] US Venous, Unilat, Lower Ext Righton 10-09-2021 [...] Luis E Thomson on 10/09/2021 1652 Normal [facility] Specialist RAD - Ultrasound Reporton RAD - Ultrasound Report [id number] .[id number]:[address] [facility] Lab Reportson 10-04-2020 Lab Reports [id number] .[id number]:[address] [facility] CREATININEon 10-03-2020 Creatinine [Mass/Vol] 1.29 mg/dL Critically high 0.66-1.25 [facility] Comment on above: Performed By: #### C IAN #### [facility] [address] [place] [address] Everardo Nidia Creatinine [Mass/Vol] 55 mL/min/1.73m2 Critically low >=60 [facility] Comment on above: Performed By: #### C IAN #### [facility] [address] [place] [address] Everardolynda Coreasen Creatinine [Mass/Vol] mg/dL Normal >=60 [facility] Comment on above: Performed By: #### C IAN #### [facility] [address] [place], [place] [id number] Everardo Nidia CT ABDOMEN W CONon 0 [...] by: JONES HIGGINS Date: 2020-10-03 10:40 Normal [facility] RAD - CT Reporton 10-03-2020 RAD - CT Report [id number] .[id number]:[address] [facility] Facesheeton 09-27-2020 Facesheet [id number]. 00CD:[address] [facility] Provider Letter FTon 09-27 Provider Letter [facility] SOARES [facility] [address] [facility] [place] [address] Re: ARMANDO CHICAS Date of : 1950 Thank you for your referral of Armando Chicas who was seen on consultation of stomach pain and nausea and decreased appetite. Testing was ordered for further evaluation. I have enclosed my consultation notes for your review and will be happy to follow Armando if his symptoms should persist. Sincerely, Nidhi Ricks MD General Surgery Normal [facility] Ambulatory Clinical Summaryo n 09-26-2020 Ambulatory Clinical Summary {[id number]}CD:[id number] Normal [facility] General Surgery Office/Clini c Noteon 09-26-2020 General [...] spicy foods; had 2 episodes after eating khmer fries; pain lasted for several hours; recent [...] Kohli Only if needed [address] [place] [address]- Additional Instructions: Patient Education Exercise to Lose Weight, Eqan-xd-Iltb Problem List/Past Medical History Ongoing Abdominal pain, [...] malignant neoplasm of prostate: Brother. Normal [facility] Comment on above: Result Comment: Elec tronically [...] Document Reviewed: 10/25/2011 ExitCare? Patient Information ?2013 [employer]. [facility] Physician Referralon 020 Physician Referral [id number] .[id number]:[address] [facility] Vital Signs Date Time Vital Sign Value Performing Clinician Faci lity 08-12-2022 12:15-0500 Body temperature 97.3 [degF] Maximus Vail MD [facility] Phone[facility] 08-12-2022 12:00-0500 Diastolic blood pressure 70 mm[Hg] Maximus Vail MD Work Phone[facility] 08-12-2022 12:00-0500 Heart rate 70 /min Maximus Vail MD Work Phone: [facility] [employer] 08-12-2022 12:00-0500 Respiratory rate 21 /min Maximus Vail MD Work Phone: [facility] 08-12-2022 12:00-0500 SaO2% (BldA) [Mass fraction] 98 % Maximus Vail MD Work Phone: [facility] 08-12-2022 12:00-0500 Systolic blood pressure 135 mm[Hg] Maximus Vail MD Work Phone: [facility] [employer] 08-12-2022 08:36-0500 Body height 157.5 cm Maximus Vail MD Work Phone: [facility] [employer] 08-12-2022 08:36-0500 Body mass index (BMI) [Ratio] 27.62 kg/m2 Maximus Vail MD Work Phone: [facility] [employer] 08-12-2022 08:36-0500 Body weight 68.49 kg Maximus Vail MD Work Phone: [facility] Encounters Encounter Date Encounter Type Care Provider Facility Start: 09-17-2023 End: 09-18-2023 ambulatory KAELYN COLEMAN Not Available Start: 08-12-2022 End: 08-12-[address] [facility] Start: 08-12-2022 End: 08-12-2022 Subsequent hospital visit by physician Maximus Vail MD Work Phone: [facility] Comment on above: Elevated PSA Start: 07-17-2022 ambulatory [facility] Start: 10-03-2020 End: 10-04-2020 Patient encounter procedure NIDHI RICKS Facility:H1 Plan of Treatment Date Care Activity Detail Author Start: 08-12-2022 End: 08-12-2022 Biopsy prostate incisional any approach PROSTATE BIOPSY Elevated PSA 08/12/2022 11:[address] [facility] Start: 07-16-2022 Annual Wellness Visi t (AWV) Annual Wellness Visit (AWV) [facility] Start: 05-06-2022 Influenza vaccination Flu vaccine (# 1) [facility] Start: 1998 Shingles vaccine (1 of 2) Shingles vaccine (1 of 2) [facility] Start: 1993 Screening for malign ant neoplasm of colon [facility] Start: 1988 Lipid panel Lipids [facility] Start: 1967 DTaP/Tdap/Td vaccine (1 - Tdap) DTaP/Tdap/Td vaccine (1 - Tdap) [facility] Start: 1966 Hepatitis C screening Hepatitis C sc reen [facility] Start: 1960 Depression Screen Depression Screen [facility] Start: 04-25-1949 COVID-19 Vaccine (#1) COVID-19 Vacci ne (#1) [facility] End: 08-12-2022 INITIATE PACU OXYGEN THERAPY PROTOCOL Initiate PACU Oxygen Therapy Protocol Respiratory Care Routine Continuous until discontinued starting 08/12/2022 [employer] Phone: Comment on above: Continuous until dis continued starting 08/12/2022 Oxygen therapy [[facility] Data Set] Initiate Oxygen Therapy Protocol Respiratory Care Routine Daily until discontinued starting 08/12/2022 [employer] Phone: Comment on above: Daily until disconti nued starting 08/12/2022 Surgical Pathology Surgical Path ology Lab Routine Elevated PSA Release Upon Ordering for 1 Occurrences starting 08/12/2022 [employer] Phone: Comment on above: Release Upon Orderin g for 1 Occurrences starting 08/12/2022 Payers Date Payer Category Payer Private Health Insurance CLI [id number] 2018 Unknown [id number] 1961 Medicare [id number] 1961 Unknown [id number] 1950 Unknown [id number] 2.16.84 [id number] 1950 Unknown [id number] 2.16.8 [id number] 1950 Unknown [id number] 2.16.8 [id number] 1950 Unknown [id number] 1950 Unknown [id number] Social History Date Type Detail Facility Start: [facility]-12-2022 [facility] [employer] Start: 08-12-2022 Tobacco use and exposure Smokeless tobacco non-user [employer] Phone: Start: 08-12-2022 Alcohol intake Ex-drinker (finding) [employer] Phone: Start: 1950 Sex Assigned At Not on file B ON [employer] Phone: Start: 08-02-2022 End: 08-12-2022 Exposure to SARS-CoV-2 (event) Not sure MAGDI [employer] Phone: Hospital Discharge instructions 08-12-2022 Discharge InstructionsAttachments Note Date & Type Note Facility 08-12-2022 Hospital Discharg e instructions Maximus Vail MD - 08/12/2022 11:23 AM EST Regular diet. Resume all home medications. No activity restrictions. Dr. Maximus Vail MD The following attachments cannot be sent through Care Everywhere.Prostate Biopsy (Pashto)documented in this encounter [employer] Phone: Evaluation note Note Date & Type Note Facility Evaluation note Diagnosis Elevated PSA Elevated prostate specific antigen (PSA) documented in this encounter [facility] [employer] Phone: Summary Purpose Family History No Family [...] DATE CREATED AUTHOR AUTHOR'S ORGANIZ ATION 10/12/2020 [facility] DATE CREATED AUTHOR AUTHOR'S ORGANIZ ATION 10/10/2021 [facility] dical Specialist DATE CREATED AUTHOR AUTHOR'S ORGANIZ ATION 07/17/2022 [facility] DATE CREATED AUTHOR AUTHOR'S ORGANIZ ATION 08/17/2022 [facility] DATE CREATED AUTHOR AUTHOR'S ORGANIZ ATION 09/22/2023 [facility] dical Specialists EPIC Reason for Visit (unrecogniz ed section and content) Specialty Diagnoses / Procedures Referred By Negin diaz Referred To Contact Diagnoses Elevated PSA Elevated PSA [R97.20] Procedures [place] BIOPSY OF PROSTATE,INCISIONAL [place] BIOPSY OF PROSTATE,NEEDLE/PUNCH FUSION PROSTATE BIOPSY WITH ULTRASOUND - [facility] [address] [facility] [address] [place] [address] [facility] [address] [place] [address] Referral ID Status Reason Start Date Expiration Date Visits Re quested Visits Authorized [id number] 1 1 Scheduled Active and Recently Administ ered Medications (unrecognized section and content) Medication Order 08/10/2022 08/11/2022 08/12/2022 ceFAZolin (ANCEF) 2000 mg in dextrose 5 % 50 mL IVPB (COMPLETED) 2,000 mg, IntraVENous, ONCE, 1 dose, On Fri08/12/22 at 0915, Antimicrobial Indications: Surgical Prophylaxis, Pre-op (day of surgery), STAT 1104 (Given - Provid er: Trixie Singleton APRN - WELCOME WAGON HOSTESS) gentamicin (GARAMYCIN) 300 mg in dextrose 5 [...] Care Teams (unrecognized sec tion and content) Lime Kiln Worker Helper Relationship Specialty Start Date End Date Kaushal Soares DO [address] [place] [address] PCP - General Internal Medicine 08/12/22 FOR [...] BE BASED ON THE PRIMARY CLINICAL RECORDS. [employer] [facility]. provides no warranty or guarantee of the accuracy or completeness of information in this document.
[2023-11-11 08:40] VITALS: BP 155/89; PULSE 99; RESP 16; TEMP 37; O2SAT 97
[2023-11-11 09:45] VITALS: BP 175/83; PULSE 104; RESP 18; O2SAT 97
[2023-11-11] MEDS: 0.9 % SODIUM CHLORIDE 10 ML SYRINGE - SALINE FLUSH INJ (09:45)
[2023-11-11] MEDS: METHYLPREDNISOLONE ACETATE 80 MG/ML VIAL INJ (09:45)
[2023-11-11] MEDS: BUPIVACAINE HCL 0.25% PF 25 MG/10 ML VIAL 5 ML INJ (09:45)
[2023-11-11] MEDS: LIDOCAINE HCL 2% PF 100 MG/5 ML VIAL INJ (09:45)
[2023-11-11] MEDS: IOHEXOL 240 MG/ML - 10 ML VIAL INJ (09:45)
[2023-11-11 09:46] VITALS: BP 166/81; PULSE 102; RESP 18; O2SAT 98
--- NOTE | 2023-11-11 10:02 | P.ON_ITS ---
Date of procedure: 11/11/23 Pre-op diagnosis: lumbar radiculopathy Post-op diagnosis: same as pre-op Procedure: Lumbar 5/sacral 1 Epidural Steroid Injection Under fluoroscopic guidance Immediate complications none Solution used for injection: Marcaine 0.25% 2mL, 2cc Normal saline, Depo-Medrol 80mg Omnipaque 3 mL Anesthesia local 2% lidocaine up to 4ml Timeout process compliant After informed consent obtained. Patient brought to the procedure room placed in the prone position. Skin overlying the area was prepped and draped in a sterile fashion using betadine. 25 gauge needle used to raise a skin wheel with local anesthetic over the target area identified under fluoroscopy. A 17 gauge Touhy needle Was inserted over the anesthetized area and directed towards the inter- space under fluoroscopic guidance. Epidural space was identified with loss of resistance technique to air. Needle Tip placement confirmed with injection of contrast solution. Steroid solution was then injected. Anesthesia: Local Surgeon: Jeremy Mcdonald Condition: stable
== END 2023-11-11 09:55 | disposition home or self-care (01) ==
LOC: SURGOUT 08:26
PROVIDERS: PCP Internal Medicine; Visit Provider Anesthesiology Pain Medicine
DX: M54.16 Radiculopathy, lumbar region (principal)
CPT/HCPCS: 62323; J0665; J1040; Q9966

== ENCOUNTER 2023-11-20 14:11 | Outpatient (OUT) | payer MEDICARE, OTHER, SELFPAY ==
--- OUTSIDE RECORDS SUMMARY | 2023-11-20 14:18 | XMS_ITS | CCD ---
Author Name Unknown Address [address] [facility] [address] [place] [id number] Organization [facility] Care Team Providers Care Academic Dean Name Role Phone NIDHI RICKS Admitting Unavailable [...] MEDIAL, NEEDLE CORE BIOPSY: BENIGN PROSTATE. Ray Aclala M.D. Electronically Signed Out rdd08/14/2022 Clinical Information [...] developed, and its performance characteristics determined by [facility] Anatomic Pathology. It has not been cleared [...] SURGICAL PATHOLOGY CONSULTATION Patient Name: ARMANDO CHICAS [facility] Rec: [id number] Path Number: [id number] [facility] [employer] [facility] ANATOMIC PATHOLOGY [address] [place] [id number] Normal [facility] Comment on above: Performed By: #### P PPVS #### [address] [address] Child Nutrition Director: Humberto Rosa MD MRI PROSTATE W WO CONTRASTon 07-17-2022 MRI PROSTATE W WO CONTRAST EXAMINATION: MULTIPARAMETRIC MRI OF THE PROSTATE WITH AND WITHOUT CONTRAST 07/17/2022: TECHNIQUE: Multiparametric imaging with dynamic contrast enhanced imaging and diffusion weighted imaging was performed. Bungolow was utilized in analysis of images. COMPARISON: [...] Neo Ayala MD 07/17/22 Final result Normal [facility] US Venous, Unilat, Lower Ext Righton [...] Luis E Thomson on 10/09/2021 1652 Normal [facility] Specialist RAD - Ultrasound Reporton RAD - Ultrasound Report [id number] .00CD:127 Normal [facility] Lab Reportson 10-04-2020 Lab Reports [id number] .00CD:127 Normal [facility] CREATININEon 10-03-2020 Creatinine [Mass/Vol] 1.29 mg/dL Critically high 0.66-1.25 [facility] Comment on above: Performed By: #### C IAN #### [facility] [address] [place] [address] Everardo Nidia Creatinine [Mass/Vol] 55 mL/min/1.73m2 Critically low >=60 [facility] Comment on above: Performed By: #### C IAN #### [facility] [address] [place] [address] Everardolynda Coreasen Creatinine [Mass/Vol] mg/dL Normal >=60 [facility] Comment on above: Performed By: #### C IAN #### [facility] [address] [place], [place] [id number] Everardo Nidia CT ABDOMEN W CONon 0 [...] by: JONES HIGGINS Date: 2020-10-03 10:[address] [facility] RAD - CT Reporton 10-03-2020 RAD - CT Report [id number] .00CD:127 Normal [facility] Facesheeton 09-27-2020 Facesheet [id number]. 00CD:127 Normal [facility] Provider Letter FTon 09-27 Provider Letter [facility] KAUSHAL SOARES JR [address] [place] [address] Re: ARMANDO CHICAS Date of : 1950 Thank you for your referral of Armando Chicas who was seen on consultation of stomach pain and nausea and decreased appetite. Testing was ordered for further evaluation. I have enclosed my consultation notes for your review and will be happy to follow Armando if his symptoms should persist. Sincerely, Nidhi Ricks MD General Surgery Normal [facility] Ambulatory Clinical Summaryo n 09-26-2020 Ambulatory Clinical Summary {[id number]}CD:[id number] Normal [facility] General Surgery Office/Clini c Noteon 09-26-2020 General [...] spicy foods; had 2 episodes after eating sao tomean fries; pain lasted for several hours; recent [...] Kohli Only if needed [address] [place] [address]- Additional Instructions: Patient Education Exercise to Lose Weight, Zyca-gk-Iryh Problem List/Past Medical History Ongoing Abdominal pain, [...] malignant neoplasm of prostate: Brother. Normal [facility] Comment on above: Result Comment: Elec [...] Document Reviewed: 10/25/2011 ExitCare? Patient Information ?2013 [employer]. [facility] Physician Referralon 020 Physician Referral [id number] .00CD:127 Normal [facility] Vital Signs Date Time Vital Sign Value Performing Clinician Faci lity 08-12-2022 12:15-0500 Body temperature 97.3 [degF] Maximus Vail MD Work Phone: [facility] 08-12-2022 12:00-0500 Diastolic blood pressure 70 mm[Hg] Maximus Vail MD Work Phone: [facility] 08-12-2022 12:00-0500 Heart rate 70 /min Maximus Vail MD Work Phone: [facility] [employer] 08-12-2022 12:00-0500 Respiratory rate 21 /min Maximus Vail MD Work Phone: [facility] 08-12-2022 12:00-0500 SaO2% (BldA) [Mass fraction] 98 % Maximus Vail MD Work Phone: [facility] 08-12-2022 12:00-0500 Systolic blood pressure 135 mm[Hg] Maximus aVil MD Work Phone: [facility] [employer] 08-12-2022 08:36-0500 Body height 157.5 cm Maximus Vail MD Work Phone: [facility] [employer] 08-12-2022 08:36-0500 Body mass index (BMI) [Ratio] 27.62 kg/m2 Maximus Vail MD Work Phone: [facility] [employer] 08-12-2022 08:36-0500 Body weight 68.49 kg Maximus Vail MD Work Phone: [facility] Encounters Encounter Date Encounter Type Care Provider Facility Start: 09-17-2023 End: 09-18-2023 ambulatory KAELYN COLEMAN Not Available Start: 08-12-2022 End: 08-12-2022 ambulatory [facility] Start: 08-12-2022 End: 08-12-2022 Subsequent hospital visit by physician Maximus Vail MD Work Phone: [facility] Comment on above: Elevated PSA Start: 07-17-2022 ambulatory [facility] Start: 10-03-2020 End: 10-04-2020 Patient encounter procedure NIDHI RICKS Facility:H1 Plan of Treatment Date Care Activity Detail Author Start: 08-12-2022 End: 08-12-2022 Biopsy prostate incisional any approach PROSTATE BIOPSY Elevated PSA 08/12/2022 11:00 AM [facility] Start: 07-16-2022 Annual Wellness Visi t (AWV) Annual Wellness Visit (AWV) [facility] Start: 05-06-2022 Influenza vaccination Flu vaccine (# 1) [facility] Start: 1998 Shingles vaccine (1 of 2) Shingles vaccine (1 of 2) [facility] Start: 1993 Screening for malign ant neoplasm of colon [facility] Start: 1988 Lipid panel Lipids [facility] Start: 1967 DTaP/Tdap/Td vaccine (1 - Tdap) DTaP/Tdap/Td vaccine (1 - Tdap) [facility] Start: 1966 Hepatitis C screening Hepatitis C sc reen [facility] Start: 1960 Depression Screen Depression Screen [facility] Start: 04-25-1951 COVID-19 Vaccine (#1) COVID-19 Vacci ne (#1) [facility] End: 08-12-2022 INITIATE PACU OXYGEN THERAPY PROTOCOL Initiate PACU Oxygen Therapy Protocol Respiratory Care Routine Continuous until discontinued starting 08/12/2022 [employer] Phone: Comment on above: Continuous until dis continued starting 08/12/2022 Oxygen therapy [[facility] Data Set] Initiate Oxygen Therapy Protocol Respiratory Care Routine Daily until discontinued starting 08/12/2022 [employer] Phone: Comment on above: Daily until disconti nued starting 08/12/2022 Surgical Pathology Surgical Path ology Lab Routine Elevated PSA Release Upon Ordering for 1 Occurrences starting 08/12/2022 [employer] Phone: Comment on above: Release Upon Orderin g for 1 Occurrences starting 08/12/2022 Payers Date Payer Category Payer Private Health Insurance CLI [id number] 2018 Unknown [id number] 1959 Medicare [id number] 1959 Unknown [id number] 1950 Unknown [id number] 1950 Unknown [id number] 1950 Unknown [id number] 1950 Unknown [id number] 1950 Unknown [id number] Social History Date Type Detail Facility [facility]: [facility]12[facility]22 [facility] Start: 08-12-2022 Tobacco use and exposure Smokeless tobacco non-user [employer] Phone: Start: 08-12-2022 Alcohol intake Ex-drinker (finding) [facility] Phone: Start: 1950 Sex Assigned At Not on file B [facility] [employer] Phone: Start: 08-02-2022 End: 08-12-2022 Exposure to SARS-CoV-2 (event) Not sure [facility] [employer] Phone: Hospital Discharge instructions 08-12-2022 Discharge InstructionsAttachments Note Date & Type Note Facility 08-12-2022 Hospital Discharg e instructions Maximus Vail MD - 08/12/2022 11:23 AM EST Regular diet. Resume all home medications. No activity restrictions. Dr. Maximus Vail MD The following attachments cannot be sent through Care Everywhere.Prostate Biopsy (Mongolian)documented in this encounter [employer] Phone: Evaluation note Note Date & Type Note Facility Evaluation note Diagnosis Elevated PSA Elevated prostate specific antigen (PSA) documented in this encounter [facility] [employer] Phone: Summary Purpose Family History No Family [...] DATE CREATED AUTHOR AUTHOR'S ORGANIZ ATION 10/12/2020 [facility] DATE CREATED AUTHOR AUTHOR'S ORGANIZ ATION 10/10/2021 [facility] dical Specialist DATE CREATED AUTHOR AUTHOR'S ORGANIZ ATION 07/17/2022 [facility] DATE CREATED AUTHOR AUTHOR'S ORGANIZ ATION 08/17/2022 [facility] DATE CREATED AUTHOR AUTHOR'S ORGANIZ ATION 09/22/2023 [facility] dical Specialists EPIC Reason for Visit (unrecogniz ed section and content) Specialty Diagnoses / Procedures Referred By Negin diaz Referred To Contact Diagnoses Elevated PSA Elevated PSA [R97.20] Procedures CA BIOPSY OF PROSTATE,INCISIONAL CA BIOPSY OF PROSTATE,NEEDLE/PUNCH FUSION PROSTATE BIOPSY WITH ULTRASOUND - [facility] [address] [place] [address] [facility] [address] [place] [address] Referral ID Status Reason Start Date Expiration Date Visits Re quested Visits Authorized [id number] 1 1 Scheduled Active and Recently Administ ered Medications (unrecognized section and content) Medication Order 08/10/2022 08/11/2022 08/12/2022 ceFAZolin (ANCEF) 2000 mg in dextrose 5 % 50 mL IVPB (COMPLETED) 2,000 mg, IntraVENous, ONCE, 1 dose, On Fri08/12/22 at 0915, Antimicrobial Indications: Surgical Prophylaxis, Pre-op (day of surgery), STAT 1104 (Given - Provid er: Trixie Singleton APRN - FIRE [employer]OTECTION F[employer]RICATOR) gentamicin (GARAMYCIN) 300 mg in dextrose 5 [...] Care Teams (unrecognized sec tion and content) Academic Dean Relationship Specialty Start Date End Date Kaushal Soares DO [address] [place] [address] PCP - General Internal Medicine 08/12/22 FOR [...] BE BASED ON THE PRIMARY CLINICAL RECORDS. [facility]. provides no warranty or guarantee of the accuracy or completeness of information in this document.
--- NOTE | 2023-11-20 14:31 | PM.CN ---
Consult Note: HPI Data of Consult Patient: known to practice within the last 3 years Requesting Physician: Estefany Juarez NP Primary Care Provider: KIMBERLEE SOARES MD Consult Narrative Reason for consult: lumbar radiculopathy Narrative: Armando Chicas a pleasant 73 year old male presents for evaluation and management of chronic radiculopathy. Pain 0/10 since recent lumbar MIRZA, 100% ongoing relief and functional improvement, REBECCA 0%. Patient reports mild tiredness from current medication regimen, denies dizziness lightheadedness. Denies numbness tingling and weakness of extremities. cc:: CC: Estefany Juarez NP Review of Systems ROS Status of ROS 10 or more systems reviewed and unremarkable except as noted in history and below [facility] Medical History (Updated 11/20/23 @ 14:32 by Estefany Juarez NP) Hypertension ?I10 - Essential (primary) hypertension (ICD-10) Surgical History S/P total knee arthroplasty ?Z96.659 - Presence of unspecified artificial knee joint (ICD-10) Meds Home Medications and Allergies Home Medications Medication Instructions Recorded Confirmed Type amlodipine 10 mg tablet 10 mg PO DAILY 10/14/23 11/11/23 History baclofen 10 mg tablet 10 mg PO .HS 10/14/23 11/11/23 History irbesartan 300 mg tablet (Avapro) 300 mg PO DAILY 10/14/23 11/11/23 History zonisamide 50 mg capsule 100 mg PO .HS 10/14/23 11/11/23 History Allergies Allergy/AdvReac Type Severity Reaction Status Date / Time No Known Drug Allergies Allergy Verified 11/11/23 08:44 Exam Constitutional Documenting provider has reviewed patient's vital signs: yes Common normals: no apparent distress, oriented x3, healthy appearing, alert and well nourished General appearance: cooperative HENMT Common normals: normocephalic, hearing grossly normal bilaterally and moist oral mucous membranes Head and scalp: normocephalic Eye Common normals: PERRL Pupil: PERRL Neck & C-Spine Common normals: full ROM General: normal visual inspection Chest Common normals: inspection of chest normal Respiratory Common normals: normal respiratory effort, no retractions and no use of accessory muscles Back & Pelvis Lumbar spine/lower back: normal to inspection, lumbar ROM normal and straight leg raise negative bilaterally Extremity Common normals: normal to inspection and full ROM Neuro Common normals: oriented x3, CN's II-XII intact bilaterally, moves all extremities, no focal motor deficits, no sensory deficits noted, deep tendon reflexes 2+ bilaterally and gait normal Sensorium/orientation: alert Motor exam: strength 5/5 throughout and no movement abnormalities noted Psych Common normals: mental status grossly normal, thought process normal, cooperative, affect normal, speech normal and activity/motor behavior normal Speech: normal speech Thought process: normal thought process Assessment and Plan Assessment and Plan (1) Lumbar radiculopathy: (2) Myofascial pain: Plan lumbar radiculopathy resolved, REBECCA 0% today decrease zonegran to 50mg HS, encouraged to assess pain pattern if pain increases with decrease in dose can go back up. if continues to have zero pain can stop zonegran continue baclofen 10mg daily PRN myofascial pain f/u 3 months sooner if needed
== END 2023-11-20 14:12 | disposition home or self-care (01) ==
LOC: PM 14:11
PROVIDERS: PCP Internal Medicine; Visit Provider Nurse Practitioner
DX: M54.16 Radiculopathy, lumbar region (principal); M79.18 Myalgia, other site
CPT/HCPCS: G0463

== ENCOUNTER 2024-02-18 13:47 | Outpatient (OUT) | payer MEDICARE, OTHER, SELFPAY ==
--- NOTE | 2024-02-18 14:16 | PM.CN ---
Consult Note: HPI Data of Consult Patient: known to practice within the last 3 years Requesting Physician: Estefany Juarez NP Primary Care Provider: KIMBERLEE SOARES MD Consult Narrative Reason for consult: lumbar radiculopathy Narrative: Armando Chicas a pleasant 73 year old male presents for evaluation and management of chronic radiculopathy. Pain 0-1/10 since last lumbar MIRZA, >80%% ongoing relief and functional improvement, REBECCA 11%. Denies numbness tingling and weakness of extremities, reports intermittent cramp of right lateral lower leg. Patient would like to discuss stopping zonegran as pain is well controlled, has very sparingly taken baclofen 10mg with benefit. cc:: CC: Estefany Juarez NP Review of Systems ROS Status of ROS 10 or more systems reviewed and unremarkable except as noted in history and below [facility] Medical History (Updated 11/20/23 @ 14:32 by Estefany Juarez NP) Hypertension ?I10 - Essential (primary) hypertension (ICD-10) Surgical History S/P total knee arthroplasty ?Z96.659 - Presence of unspecified artificial knee joint (ICD-10) Meds Home Medications and Allergies Home Medications ?Medication ?Instructions ?Recorded ?Confirmed ?Type amlodipine 10 mg tablet 10 mg PO DAILY 10/14/23 11/11/23 History baclofen 10 mg tablet 10 mg PO .HS 10/14/23 11/11/23 History irbesartan 300 mg tablet (Avapro) 300 mg PO DAILY 10/14/23 11/11/23 History zonisamide 50 mg capsule 100 mg PO .HS 10/14/23 11/11/23 History Allergies Allergy/AdvReac Type Severity Reaction Status Date / Time No Known Drug Allergies Allergy Verified 11/11/23 08:44 Exam Constitutional Documenting provider has reviewed patient's vital signs: yes Common normals: no apparent distress, oriented x3, healthy appearing, alert and well nourished General appearance: cooperative HENMT Common normals: normocephalic, hearing grossly normal bilaterally and moist oral mucous membranes Head and scalp: normocephalic Eye Common normals: PERRL Pupil: PERRL Neck & C-Spine Common normals: full ROM General: normal visual inspection Chest Common normals: inspection of chest normal Respiratory Common normals: normal respiratory effort, no retractions and no use of accessory muscles Back & Pelvis Lumbar spine/lower back: normal to inspection, lumbar ROM normal and straight leg raise negative bilaterally Extremity Common normals: normal to inspection and full ROM Neuro Common normals: oriented x3, CN's II-XII intact bilaterally, moves all extremities, no focal motor deficits, no sensory deficits noted and deep tendon reflexes 2+ bilaterally Sensorium/orientation: alert Motor exam: strength 5/5 throughout and no movement abnormalities noted Psych Common normals: mental status grossly normal, thought process normal, cooperative, affect normal, speech normal and activity/motor behavior normal Speech: normal speech Thought process: normal thought process Results Additional Findings Additional findings: If on a controlled substance or opioids, I have checked an OARRS report on this patient and there are no aberrancies noted in the prescribing history.??If on a controlled substance or opioid a drug screen was completed and reviewed within the last year, and if there has not been a drug screen completed we ordered one today to monitor higher risk, state monitored pain medication use. As part of providing excellent, safe, comprehensive care, the following was completed at our patient's visit: 1. A medication reconciliation and review to ensure accurate knowledge of current/active medications, including asking our patients to inform us about any rjjn-xdi-jjcqiwy medications or herbal remedies/nutritional supplements/alternative remedies. 2. A review to specifically ensure our patients have had annual screening for screening for depression, screening for tobacco use, and screening for unhealthy alcohol use. For concerning screenings had a discussion with the patient, provided patient education, and recommended follow-up with primary care provider when appropriate. If patient noted with a risk of falling, they received education on strength, gait, and balance training to prevent future risk of falling. Assessment and Plan Assessment and Plan (1) Lumbar radiculopathy: (2) Myofascial pain: Plan zonegran every other day for 1-2 weeks, stop. if pain worsens can call to discuss restarting continue prn baclofen 10mg f/u as needed
== END 2024-02-18 13:48 | disposition home or self-care (01) ==
LOC: PM 13:48
PROVIDERS: PCP Internal Medicine; Visit Provider Nurse Practitioner
DX: M54.16 Radiculopathy, lumbar region (principal); M79.18 Myalgia, other site
CPT/HCPCS: G0463